=== PATIENT | male | born 1985 | race American Indian/Alaskan Native ===

== ENCOUNTER 2018-02-02 17:21 | Emergency (ER) | payer SELFPAY ==
[2018-02-02 18:01] VITALS: BP 124/73
[2018-02-02] MEDS ORDERED: ZOFRAN ODT PO ONE (18:02)
[2018-02-02 18:48] LABS: Basophils % (Auto) 0.2 % (0.0-1.8); Eosinophils % (Auto) 0.1 % (0.0-4.3); Hematocrit 46.5 % (35.5-45.6); Hemoglobin 15.2 gm/dl (11.8-15.2); Lymphocytes # (Auto) 1.4 K/mm3 (1.2-5.4); Lymphocytes % (Auto) 11.2 % (13.4-35.0); Mean Corpuscular HGB Conc 33 % (32-34); Mean Corpuscular Hemoglobin 32 pg (28-32); Mean Corpuscular Volume 98 fl (84-94); Monocytes # (Auto) 0.6 K/mm3 (0.0-0.8); Platelet Count 263 K/mm3 (140-440); Red Blood Count 4.73 M/mm3 (3.65-5.03); Red Cell Distribution Width 14.7 % (13.2-15.2)
[2018-02-02 18:59] LABS: BUN/Creatinine Ratio 9; Blood Urea Nitrogen 9 mg/dL (9-20); Calcium 9.5 mg/dL (8.4-10.2); Hemolysis Index 15
--- NOTE | 2018-02-02 21:17 | Emergency Department Report ---
Vomiting/Diarrhea - [facility] Chief Complaint: Nausea/Vomiting/Diarrhea Stated Complaint: VOMITING,CHILLS Time Seen by Provider: 02/02/18 21:03 Duration: 2 Days Severity: moderate Nausea/Vomiting Severity: Moderate Diarrhea Severity: Moderate Pain Location: Other (chest pain) Symptoms: No Watery Diarrhea, No Bloody diarrhea, No Fever, No Able to Tolerate Fluids, No Recent Unusual Foods, No Recent Untreated Water, No Recent use of Antibiotics, No Family w/ Similar Symptoms, No Rash, No Hematuria, No Recent URI Symptoms Other History: 32-year-old -[place] male comes to the emergency room complaining of nausea vomiting abdominal pain cough shortness of breath and chest pain with deep cough. Patient reports that he has been nauseated and vomited. Patient does admit that he has recently traveled to [place] and back in his car. Patient complains of chills reports his vomited all day. ED Review of Systems ROS: Stated complaint: VOMITING,CHILLS Other details as noted in HPI Constitutional: chills Respiratory: cough, shortness of breath Cardiovascular: chest pain Gastrointestinal: abdominal pain, nausea, vomiting ED Past Medical Hx - Past Medical History Previous Medical History?: No - Surgical History Past Surgical History?: Yes Additional Surgical History: Right forearm, Pelvic sx - Social History Smoking Status: Current Every Day Smoker Substance Use Type: Alcohol, Marijuana Vomiting Diarrhea Exam - Exam General: Vital signs noted. No distress. Alert and acting appropriately. HEENT: Yes Moist Mucous Membranes, No Pharyngeal Erythema, No Pharyngeal Exudates, No Rhinorrhea, No Conjuctival Injection, No Frontal Tenderness, No Maxillary Tenderness Neck: No Adenopathy, No Rigidity Lungs: Yes Wheezes Heart exam: Regular: Yes Abdomen: Tenderness: Yes, Peritoneal Signs: No, Distention: No, Hyperactive Bowel sounds: No Skin exam: Rash: No, Edema: No, Normal turgor: Yes Neurologic: Alert and oriented, no deficits. Musculoskeletal: Unremarkable. ED Course Vital Signs 02/02/18 17:57 Temperature 97.9 F Pulse Rate 68 Respiratory 18 Rate Blood Pressure 124/73 O2 Sat by Pulse 100 Oximetry ED Medical Decision Making - Lab Data Result diagrams: 02/02/18 18:15 02/02/18 18:15 - Radiology Data Radiology results: report reviewed, image reviewed FINAL REPORT PROCEDURE: CT ABDOMEN PELVIS W CON TECHNIQUE: Computerized axial tomography of the abdomen and pelvis was performed after the IV injection of iodinated nonionic contrast. HISTORY: chest pain w/sob COMPARISON: No prior studies are available for comparison. FINDINGS: Lower Lung anne: No focal abnormality seen. Upper Abdomen: The liver, the gallbladder, the adrenal glands, the pancreas and the spleen are unremarkable Kidneys, Ureters and Urinary bladder: No abnormalities are seen. Retroperitoneum: The abdominal aorta appears normal. Nonspecific subcentimeter lymph nodes are seen in the retroperitoneum. No pathologically enlarged lymph nodes are identified. Bowel: Bowel loops are unremarkable. No evidence of bowel obstruction ascites or free intraperitoneal gas. Normal-appearing appendix is seen in the right lower quadrant. Reproductive organs: Prostate gland does not appear to be significantly enlarged. Other: There deformity of the symphysis pubis superior pubic ramus bilateral and inferior pubic ramus on the left. The appearance is consistent with old healed fractures. There is been prior fixation procedure. There is also been prior fixation of the sacrum and left SI joint. No acute bony abnormalities are identified. IMPRESSION: No acute abnormalities are seen in the abdomen or pelvis. Prior pelvic fractures and sacral fracture with evidence of prior ORIF. No acute bony abnormalities are seen. Transcribed By: DFN Dictated By: TERI DELUNA MD Electronically Authenticated By: TERI DELUNA MD Signed Date/Time: 02/03/186 FINAL REPORT PROCEDURE: CT CHEST W CON TECHNIQUE: Computerized axial tomographic angiography of the chest and pulmonary arteries was performed during the IV injection of iodinated nonionic contrast. The image data was postprocessed using maximum intensity projection (MIP) and 2-dimensional multiplanar reformatted (MPR) techniques. The examination is specifically tailored to the evaluation of the pulmonary arteries per clinical request. HISTORY: Short of breath 786.09, chest pain 786.50, chest pain w/sob. Evaluate pulmonary embolus COMPARISON: No prior studies are available for comparison. FINDINGS: Pulmonary outflow tract, right and left main pulmonary arteries and their proximal branches: Clear, no filling defects seen to suggest pulmonary embolus. Pericardium: No evidence of pericardial effusion. Thoracic aorta: No evidence of aneurysmal dilatation or dissection. Coronary arteries: Are unremarkable. Mediastinum and hilar regions: Nonspecific subcentimeter lymph nodes are visualized. No pathologically enlarged lymph nodes or masses are identified. Lung Anne: Clear Upper abdomen: No acute or focal abnormality is seeen. Other: No acute bony abnormalities are identified. IMPRESSION: Negative exam. No evidence of pulmonary embolus. No acute abnormalities are seen. Transcribed By: DFN Dictated By: ETRI DELUNA MD Electronically Authenticated By: TERI DELUNA MD Signed Date/Time: 02/03/1811 DD/ TD/TT: 02/03/1811 DD/ TD/TT: 02/03/186 - Medical Decision Making Patient's been evaluated by this provider fast track. Patient complains of shortness of breathing with exertion and has been on a long trip to [place] therefore I will order a d-dimer and a chest CT with contrast. Patient complains of abdominal pain with nausea and vomiting will check a lipase CT of the abdomen with contrast. As well as a urinalysis. Patient is nauseated and vomiting will order Zofran for anti-emetics. Toradol IV 15 mg for pain management. Critical care attestation.: If time is entered above; I have spent that time in minutes in the direct care of this critically ill patient, excluding procedure time. ED Disposition Clinical Impression: Nausea and vomiting in adult patient, Dehydration, mild Disposition: DC-01 TO HOME OR SELFCARE Is pt being admited?: No Does the pt Need Aspirin: No Condition: Stable Instructions: Gastritis (ED) Additional Instructions: Please increase her water intake by 2 L a day. If your symptoms persist or gets worse please follow up with the primary care provider. Referrals: [facility] [Primary Care Provider] - 3-5 Days [facility] [Provider Group] - 3-5 Days Forms: Work/School Release Form(ED), Accompanied Note
[2018-02-02] MEDS ORDERED: NACL 0.9% 1000 ML 1,000 ML IV ONE (21:20)
[2018-02-02] MEDS ORDERED: ZOFRAN ONE (21:28)
[2018-02-02] MEDS ORDERED: TORADOL ONE (21:32)
[2018-02-02] MEDS ORDERED: ZOFRAN IV ONE (21:37)
[2018-02-02] MEDS ORDERED: TORADOL IV ONE (21:39)
[2018-02-02 23:15] LABS: Bilirubin,Urine NEG (Negative); Blood,Urine NEG (Negative); Color,Urine Yellow (Yellow); Mucus,Urine 2+ /HPF; WBC,Urine < 1.0 /HPF (0.0-6.0)
--- NOTE | 2018-02-03 00:14 | Cat Scan Report ---
FINAL REPORT PROCEDURE: CT ABDOMEN PELVIS W CON TECHNIQUE: Computerized axial tomography of the abdomen and pelvis was performed after the IV injection of iodinated nonionic contrast. HISTORY: chest pain w/sob COMPARISON: No prior studies are available for comparison. FINDINGS: Lower Lung anne: No focal abnormality seen. Upper Abdomen: The liver, the gallbladder, the adrenal glands, the pancreas and the spleen are unremarkable Kidneys, Ureters and Urinary bladder: No abnormalities are seen. Retroperitoneum: The abdominal aorta appears normal. Nonspecific subcentimeter lymph nodes are seen in the retroperitoneum. No pathologically enlarged lymph nodes are identified. Bowel: Bowel loops are unremarkable. No evidence of bowel obstruction ascites or free intraperitoneal gas. Normal-appearing appendix is seen in the right lower quadrant. Reproductive organs: Prostate gland does not appear to be significantly enlarged. Other: There deformity of the symphysis pubis superior pubic ramus bilateral and inferior pubic ramus on the left. The appearance is consistent with old healed fractures. There is been prior fixation procedure. There is also been prior fixation of the sacrum and left SI joint. No acute bony abnormalities are identified. IMPRESSION: No acute abnormalities are seen in the abdomen or pelvis. Prior pelvic fractures and sacral fracture with evidence of prior ORIF. No acute bony abnormalities are seen.
--- NOTE | 2018-02-03 00:19 | Cat Scan Report ---
FINAL REPORT PROCEDURE: CT CHEST W CON TECHNIQUE: Computerized axial tomographic angiography of the chest and pulmonary arteries was performed during the IV injection of iodinated nonionic contrast. The image data was postprocessed using maximum intensity projection (MIP) and 2-dimensional multiplanar reformatted (MPR) techniques. The examination is specifically tailored to the evaluation of the pulmonary arteries per clinical request. HISTORY: Short of breath 786.09, chest pain 786.50, chest pain w/sob. Evaluate pulmonary embolus COMPARISON: No prior studies are available for comparison. FINDINGS: Pulmonary outflow tract, right and left main pulmonary arteries and their proximal branches: Clear, no filling defects seen to suggest pulmonary embolus. Pericardium: No evidence of pericardial effusion. Thoracic aorta: No evidence of aneurysmal dilatation or dissection. Coronary arteries: Are unremarkable. Mediastinum and hilar regions: Nonspecific subcentimeter lymph nodes are visualized. No pathologically enlarged lymph nodes or masses are identified. Lung Guevara: Clear Upper abdomen: No acute or focal abnormality is seeen. Other: No acute bony abnormalities are identified. IMPRESSION: Negative exam. No evidence of pulmonary embolus. No acute abnormalities are seen.
== END 2018-02-03 00:55 | disposition home or self-care (01) ==
LOC: ED 17:21
DX: E86.0 Dehydration (principal); R07.89 Other chest pain
CPT/HCPCS: 36415; 71260; 74177; 80048; 81001; 83690; 84484; 85025; 85379; 96361; 96374; 96375; 99284; J1885; J2405; J7030; Q9967; Q0162